=== PATIENT | male | born 1940 | race Caucasian/White ===

== ENCOUNTER 2021-02-10 08:18 | Observation (INO) ==
[2021-02-10] MEDS ORDERED: Pantoprazole 40 MG VIAL IVP ONE (08:26)
[2021-02-10] MEDS ORDERED: Ondansetron 4 MG/2 ML VIAL IVP ONE (08:26)
[2021-02-10] MEDS ORDERED: 0.9 % Sodium Chloride 1,000 ML IVC ONE (08:26)
[2021-02-10 08:55] LABS: Basophils % 0.4 %; Eosinophils % 0.1 %; Hematocrit 37.5 % (37.5-50.1); Hemoglobin 12.5 g/dL (12.9-16.9); Immature Granulocytes % 0.5 % (0-4); Lymphocytes # 1.1 K/mcL (0.6-4.6); Lymphocytes % 10.9 %; Mean Corpuscular HGB Conc 33.3 g/dL (31.6-35.5); Mean Corpuscular Hemoglobin 30.5 pg (28.0-33.3); Mean Corpuscular Volume 91.5 fL (83.0-100.0); Mean Platelet Volume 10.3 fL (9.4-12.4); Monocytes # 0.6 K/mcL (0.0-1.3); Monocytes % 5.9 %; Neutrophils # 8.4 K/mcL (1.6-8.9); Platelet Count 259 K/mcL (140-400); Red Cell Distribution Width 14.1 % (11.5-14.5); Segmented Neutrophils % 82.2 %; White Blood Count 10.3 K/mcL (4.3-11.1)
[2021-02-10 09:02] LABS: INR 1.5; Prothrombin Time 17.2 Seconds (9.4-12.1)
[2021-02-10 09:05] LABS: Activated Partial Thrombo Time 31.1 Seconds (26.0-36.0)
[2021-02-10 09:15] LABS: Alanine Aminotransferase 10 Units/L (7-52); Albumin 3.5 g/dL (3.5-5.7); Alkaline Phosphatase 89 Units/L (34-104); Aspartate Amino Transferase 15 Units/L (13-39); BUN/Creatinine Ratio 94 (6-26); Bilirubin,Total 1.2 mg/dL (0.3-1.0); Blood Urea Nitrogen 108 mg/dL (8-23); Calcium 8.9 mg/dL (8.6-10.3); Carbon Dioxide 25 mEq/L (23-29); Chloride 100 mEq/L (98-107); Globulin 3.4 g/dL (2.4-3.5); Glucose 162 mg/dL (70-105); Lipase 28 Units/L (11-82); Magnesium 2.4 mg/dL (1.6-2.6); Osmolality,Calculated 320 (280-300); Potassium 4.3 mEq/L (3.5-5.1); Sodium 136 mEq/L (136-145); Total Protein 6.9 g/dL (6.4-8.9); Troponin I < 0.03 ng/mL (< 0.04); eGFR For African Americans > 60 (> 60); eGFR For Non-African Americans > 60 (> 60)
[2021-02-10] MEDS ORDERED: *HR* FentaNYL (PF) 100 MCG/2 ML VIAL IVP ONE (09:27)
[2021-02-10] MEDS: Pantoprazole 40 MG in 0.9 % Sodium Chloride Mini Bag 100 ML IVC SCH ×3 (09:27→20:46)
[2021-02-10] MEDS ORDERED: Metoclopramide 10 MG/2 ML VIAL IVP STA (10:30)
[2021-02-10] MEDS ORDERED: Octreotide 50 MCG/ML INJ IVP ONE (10:46)
[2021-02-10] MEDS ORDERED: Naloxone 0.4 MG/ML INJ IVP PRN (11:26)
[2021-02-10] MEDS ORDERED: Ondansetron 4 MG/2 ML VIAL IVP PRN (11:26)
[2021-02-10] MEDS: Octreotide 400 MCG in 0.9 % Sodium Chloride 100 ML IVC SCH (11:32)
[2021-02-10] MEDS ORDERED: *HR* Propofol 200 MG/20 ML VIAL IVP ONE ×2 (12:36→12:54)
[2021-02-10] MEDS ORDERED: Lidocaine -MPF 2% 5 ML VIAL ONE (12:36)
[2021-02-10] MEDS ORDERED: *HR* EPINEPHrine 1 MG/10 ML SYRINGE INTRATRACH PRN (12:51)
[2021-02-10] MEDS: Ringers Solution, Lactated 1,000 ML IVC SCH (14:21)
[2021-02-10 14:29] LABS: Hematocrit 32.5 % (37.5-50.1)
[2021-02-10 14:33] LABS: Hemoglobin 10.8 g/dL (12.9-16.9)
[2021-02-10] MEDS: *HR* OxyCODONE/APAP 10/325 TABLET PO PRN (15:58)
[2021-02-10] MEDS ORDERED: Ipratropium/Albuterol Neb 3 ML IH PRN (20:35)
[2021-02-10] MEDS ORDERED: 0.9 % Sodium Chloride Mini Bag 100 ML ONE (20:39)
[2021-02-10] MEDS ORDERED: *HR* LORazepam 2 MG/ML VIAL IVP PRN ×3 (20:39)
[2021-02-10] MEDS: Colchicine 0.6 MG TABLET PO SCH (20:47)
[2021-02-11 01:11] LABS: Basophils % 0.4 %; Eosinophils % 0.2 %; Hematocrit 29.7 % (37.5-50.1); Hemoglobin 9.9 g/dL (12.9-16.9); Immature Granulocytes % 0.4 % (0-4); Lymphocytes # 1.6 K/mcL (0.6-4.6); Lymphocytes % 15.1 %; Mean Corpuscular HGB Conc 33.3 g/dL (31.6-35.5); Mean Corpuscular Hemoglobin 29.7 pg (28.0-33.3); Mean Corpuscular Volume 89.2 fL (83.0-100.0); Mean Platelet Volume 10.3 fL (9.4-12.4); Monocytes # 1.2 K/mcL (0.0-1.3); Neutrophils # 7.7 K/mcL (1.6-8.9); Platelet Count 224 K/mcL (140-400); Red Blood Count 3.33 M/mcL (4.19-5.50); Red Cell Distribution Width 14.5 % (11.5-14.5); Segmented Neutrophils % 72.9 %; White Blood Count 10.6 K/mcL (4.3-11.1)
[2021-02-11 01:35] LABS: BUN/Creatinine Ratio 98 (6-26); Blood Urea Nitrogen 91 mg/dL (8-23); Calcium 8.3 mg/dL (8.6-10.3); Carbon Dioxide 26 mEq/L (23-29); Chloride 105 mEq/L (98-107); Glucose 112 mg/dL (70-105); Magnesium 2.3 mg/dL (1.6-2.6); Osmolality,Calculated 317 (280-300); Potassium 3.9 mEq/L (3.5-5.1); Sodium 139 mEq/L (136-145); eGFR For African Americans > 60 (> 60); eGFR For Non-African Americans > 60 (> 60)
[2021-02-11] MEDS: *HR* OxyCODONE/APAP 10/325 TABLET PO PRN ×2 (02:10→10:16)
[2021-02-11] MEDS: Ringers Solution, Lactated 1,000 ML IVC SCH (02:14)
[2021-02-11] MEDS: Pantoprazole 40 MG in 0.9 % Sodium Chloride Mini Bag 100 ML IVC SCH ×2 (02:16→07:31)
[2021-02-11] MEDS: Octreotide 400 MCG in 0.9 % Sodium Chloride 100 ML IVC SCH (03:06)
[2021-02-11] MEDS: Colchicine 0.6 MG TABLET PO SCH (08:56)
[2021-02-11] MEDS ORDERED: allopurinoL 100 MG TABLET PO SCH (09:00)
[2021-02-11] MEDS ORDERED: Multivit/Ca/Min/Fe/FA 1 TAB TABLET PO SCH (09:00)
[2021-02-11] MEDS ORDERED: Folic Acid 1 MG TABLET PO SCH (09:00)
[2021-02-11] MEDS ORDERED: Thiamine (B-1) 100 MG TABLET PO SCH (09:00)
[2021-02-11] MEDS ORDERED: Bumetanide 1 MG TABLET PO SCH (09:00)
[2021-02-11 09:55] LABS: Hematocrit 29.6 % (37.5-50.1); Hemoglobin 9.8 g/dL (12.9-16.9)
[2021-02-11] MEDS ORDERED: Sucralfate 1 GM TABLET PO SCH (11:30)
[2021-02-11 11:41] VITALS: BP 91/57; PULSE 79; TEMP 97.2; O2SAT 96
[2021-02-11 14:42] LABS: Hematocrit 29.6 % (37.5-50.1); Hemoglobin 9.8 g/dL (12.9-16.9)
== END 2021-02-11 16:40 | disposition home health service (06) ==
LOC: SUATTDRO → 3NENU 08:18 → EMEROOARM 08:18 → SUATTDRO 10:45 → 3NENU 12:09
PROVIDERS: ADMIT Pharmacist; ATTEND Internal Medicine

== ENCOUNTER 2021-11-08 11:53 | Observation (INO) ==
[2021-11-08 12:57] LABS: Basophils % 0.3 %; Hematocrit 36.9 % (37.5-50.1); Hemoglobin 11.7 g/dL (12.9-16.9); Immature Granulocytes % 0.5 % (0-4); Lymphocytes # 0.9 K/mcL (0.6-4.6); Lymphocytes % 11.2 %; Mean Corpuscular HGB Conc 31.7 g/dL (31.6-35.5); Mean Corpuscular Hemoglobin 27.8 pg (28.0-33.3); Mean Corpuscular Volume 87.6 fL (83.0-100.0); Mean Platelet Volume 10.5 fL (9.4-12.4); Monocytes # 0.7 K/mcL (0.0-1.3); Monocytes % 9.2 %; Neutrophils # 6.2 K/mcL (1.6-8.9); Platelet Count 258 K/mcL (140-400); Red Blood Count 4.21 M/mcL (4.19-5.50); Red Cell Distribution Width 15.2 % (11.5-14.5); Segmented Neutrophils % 78.8 %; White Blood Count 7.9 K/mcL (4.3-11.1)
[2021-11-08 12:58] LABS: Bilirubin,Urine Negative (Negative); Blood,Urine Negative (Negative); Clarity,Urine Clear (Clear); Color,Urine Light-Yellow (Yellow); Glucose,Urine (UA) Normal (Normal); Ketones,Urine Negative (Negative); Leukocyte Esterase,Urine Negative (Negative); Nitrite,Urine Negative (Negative); Protein,Urine Negative (Neg-Trace); Specific Gravity,Urine 1.013 (1.010-1.025); Urobilinogen,Urine Normal (Normal)
[2021-11-08 13:23] LABS: BUN/Creatinine Ratio 98 (6-26); Blood Urea Nitrogen 98 mg/dL (8-23); Calcium 9.3 mg/dL (8.6-10.3); Carbon Dioxide 30 mEq/L (23-29); Chloride 100 mEq/L (98-107); Glucose 138 mg/dL (70-105); Osmolality,Calculated 319 (280-300); Sodium 138 mEq/L (136-145); eGFR For African Americans > 60 (> 60); eGFR For Non-African Americans > 60 (> 60)
[2021-11-08] MEDS ORDERED: Pantoprazole 40 MG VIAL IVP ONE (14:43)
[2021-11-08] MEDS ORDERED: Isovue-370 500 ML BOTTLE IVP ONE (14:43)
[2021-11-08] MEDS ORDERED: Morphine Sulfate 2 MG/ML SYRINGE IVP STA (16:52)
[2021-11-08] MEDS ORDERED: Ondansetron 4 MG/2 ML VIAL IVP PRN (18:01)
[2021-11-08] MEDS ORDERED: Naloxone 0.4 MG/ML INJ IVP PRN (18:01)
[2021-11-08] MEDS ORDERED: Melatonin 3 MG TABLET PO PRN (18:01)
[2021-11-08] MEDS ORDERED: Acetaminophen 325 MG TABLET PO PRN (18:01)
[2021-11-08] MEDS: Pantoprazole 40 MG VIAL IVP SCH (21:52)
[2021-11-08] MEDS: *HR* OxyCODONE/APAP 10/325 TABLET PO PRN (21:54)
[2021-11-09 01:58] LABS: Hematocrit 32.9 % (37.5-50.1); Hemoglobin 10.8 g/dL (12.9-16.9); Mean Corpuscular HGB Conc 32.8 g/dL (31.6-35.5); Mean Corpuscular Hemoglobin 28.1 pg (28.0-33.3); Mean Corpuscular Volume 85.7 fL (83.0-100.0); Mean Platelet Volume 10.6 fL (9.4-12.4); Platelet Count 243 K/mcL (140-400); Red Blood Count 3.84 M/mcL (4.19-5.50); Red Cell Distribution Width 15.4 % (11.5-14.5); White Blood Count 10.1 K/mcL (4.3-11.1)
[2021-11-09 02:20] LABS: Alanine Aminotransferase 8 Units/L (7-52); Albumin 3.1 g/dL (3.5-5.7); Alkaline Phosphatase 77 Units/L (34-104); Aspartate Amino Transferase 14 Units/L (13-39); BUN/Creatinine Ratio 95 (6-26); Bilirubin,Direct 0.2 mg/dL (0.0-0.2); Bilirubin,Indirect 0.6 mg/dL (0.0-1.0); Bilirubin,Total 0.8 mg/dL (0.3-1.0); Blood Urea Nitrogen 99 mg/dL (8-23); Calcium 9.1 mg/dL (8.6-10.3); Carbon Dioxide 29 mEq/L (23-29); Chloride 100 mEq/L (98-107); Globulin 3.2 g/dL (2.4-3.5); Glucose 119 mg/dL (70-105); Osmolality,Calculated 320 (280-300); Potassium 3.7 mEq/L (3.5-5.1); Sodium 139 mEq/L (136-145); Total Protein 6.3 g/dL (6.4-8.9); eGFR For African Americans > 60 (> 60); eGFR For Non-African Americans > 60 (> 60)
[2021-11-09] MEDS: *HR* OxyCODONE/APAP 10/325 TABLET PO PRN ×3 (05:28→16:30)
[2021-11-09] MEDS: Pantoprazole 40 MG VIAL IVP SCH ×2 (09:19→20:57)
[2021-11-09] MEDS: allopurinoL 100 MG TABLET PO SCH (09:20)
[2021-11-10] MEDS: *HR* OxyCODONE/APAP 10/325 TABLET PO PRN ×3 (00:10→15:28)
[2021-11-10 03:01] LABS: Hematocrit 29.4 % (37.5-50.1); Hemoglobin 9.4 g/dL (12.9-16.9); Mean Corpuscular Volume 87.5 fL (83.0-100.0); Mean Platelet Volume 10.4 fL (9.4-12.4); Platelet Count 222 K/mcL (140-400); Red Blood Count 3.36 M/mcL (4.19-5.50); Red Cell Distribution Width 15.7 % (11.5-14.5); White Blood Count 5.8 K/mcL (4.3-11.1)
[2021-11-10] MEDS: allopurinoL 100 MG TABLET PO SCH (07:45)
[2021-11-10] MEDS: Pantoprazole 40 MG VIAL IVP SCH (07:46)
[2021-11-10] MEDS ORDERED: *HR* Propofol 200 MG/20 ML VIAL IVP ONE ×2 (12:35→12:47)
[2021-11-10] MEDS ORDERED: Lidocaine -MPF 2% 2 ML VIAL ONE (12:43)
[2021-11-10 15:48] VITALS: BP 112/60; PULSE 80; TEMP 97.4; O2SAT 95
== END 2021-11-10 18:43 | disposition home or self-care (01) ==
LOC: 3ANU 11:53 → EMEROOARM 11:53 → 3ANU 17:50
PROVIDERS: ADMIT Student in an Organized Health Care Education/Training Program; ATTEND Student in an Organized Health Care Education/Training Program
PROC: ENDOEBX (2021-11-10 15:30)